=== PATIENT | female | born 1980 | race Caucasian/White ===

== ENCOUNTER 2017-12-24 14:38 | Inpatient (IN) | payer MEDICAID ==
[~2017-12-24] VITALS: Ht 154.9 cm; Wt 70.0 kg
[2017-12-24] MEDS ORDERED: LAMO25 PO (14:44)
[2017-12-24] MEDS ORDERED: DiphenhydrAMINE HCL 25 MG CAPSULE PO ONE (16:15)
[2017-12-24] MEDS ORDERED: HALOPERIDOL 5 MG TABLET PO ONE (16:15)
[2017-12-24] MEDS ORDERED: LORazepam 2 MG TABLET PO ONE (16:15)
[2017-12-24 17:14] LABS: BASOPHILS % (AUTO) 0.8 % (0.0-2.0); EOSINOPHILS % (AUTO) 2.1 % (1.0-6.0); HEMATOCRIT 39.9 % (36-46); HEMOGLOBIN 13.7 g/dL (12.0-16.0); LYMPHOCYTES % (AUTO) 18.2 % (22.0-44.0); MEAN CORPUSCULAR HEMOGLOBIN 31.4 pg (26.0-34.0); MEAN CORPUSCULAR HGB CONC 34.5 G/dL (31.0-37.0); MEAN CORPUSCULAR VOLUME 91 fL (80-100); MONOCYTES # (AUTO) 0.9 K/uL (0.1-1.0); NEUTROPHILS # (AUTO) 7.7 K/uL (1.8-7.7); NEUTROPHILS % (AUTO) 70.9 % (40.0-70.0); PLATELET COUNT (AUTO) 291 K/uL (150-450); RED BLOOD CELL COUNT(AUTO) 4.38 MIL/uL (4.00-5.20); RED CELL DISTRIBUTION WIDTH 13.3 % (11.5-14.5)
[2017-12-24 17:33] LABS: ALANINE AMINOTRANSFERASE 44 U/L (12-78); ALKALINE PHOSPHATASE 54 U/L (46-116); ANION GAP 10 mmol/L (8-16); ASPARTATE AMINOTRANSFERASE 80 U/L (15-37); BILIRUBIN,TOTAL 0.6 mg/dL (0.1-1.0); CARBON DIOXIDE 26 mmol/L (22-29); CHLORIDE 101 mmol/L (98-107); CREATININE 0.75 mg/dL (0.60-1.30); GLOMERULAR FILTR. RATE CALC > 60 mL/min (>60); GLUCOSE,RANDOM 98 mg/dL (70-110); SODIUM SERUM 137 mmol/L (136-145); TOTAL PROTEIN, SERUM 7.8 g/dL (6.4-8.2); UREA NITROGEN, BLOOD 7 mg/dL (7-18)
[2017-12-24 17:45] LABS: POTASSIUM 2.8 mmol/L (3.5-5.1)
[2017-12-24] MEDS ORDERED: POTASSIUM CHLORIDE 20 MEQ ER TABLET PO ONE ×2 (18:15→21:30)
[2017-12-24] MEDS ORDERED: OLANZapine 5 MG RAPDIS TABLET PO PRN (18:45)
[2017-12-24] MEDS ORDERED: IBUPROFEN 400 MG TABLET PO PRN ×2 (18:45→21:15)
[2017-12-24] MEDS ORDERED: ACETAMINOPHEN 325 MG TABLET PO PRN ×2 (18:45→21:15)
[2017-12-24 18:57] LABS: APPEARANCE,URINE CLEAR (CLEAR); BILIRUBIN,URINE NEGATIVE (NEGATIVE); GLUCOSE, URINE (UA) NEGATIVE (NEGATIVE); KETONES,URINE NEGATIVE (NEGATIVE); LEUKOCYTE ESTERASE ,URINE NEGATIVE (NEGATIVE); NITRATE,URINE NEGATIVE (NEGATIVE); OCCULT BLOOD,URINE NEGATIVE (NEGATIVE); PROTEIN,URINE NEGATIVE (NEGATIVE); UROBILINOGEN,URINE 0.2 mg/dL (<=1.0)
[2017-12-24 18:59] LABS: AMPHET/METH SCREEN,URINE NEGATIVE (NEGATIVE); BARBITURATE SCREEN, URINE NEGATIVE (NEGATIVE); BENZODIAZEPINES SCREEN,URINE NEGATIVE (NEGATIVE); CANNABINOID SCREEN,URINE NEGATIVE (NEGATIVE); COCAINE SCREEN,URINE NEGATIVE (NEGATIVE); METHADONE SCREEN, URINE NEGATIVE (NEGATIVE); OPIATE SCREEN,URINE NEGATIVE (NEGATIVE); PHENCYCLIDINE SCREEN,URINE NEGATIVE (NEGATIVE)
[2017-12-24 20:46] VITALS: BP 112/64
[2017-12-24] MEDS ORDERED: LOPERAMIDE HCL 2 MG CAPSULE PO PRN (21:15)
[2017-12-24] MEDS ORDERED: ALBUTEROL SULFATE HFA 90 MCG/PUFF 8 GM INHALER IH PRN (21:15)
[2017-12-24] MEDS ORDERED: MAGNESIUM HYDROXIDE SUSPENSION 30 ML UDCUP PO PRN (21:15)
[2017-12-24] MEDS ORDERED: ONDANSETRON HCL 4 MG TABLET PO PRN (21:15)
[2017-12-24] MEDS ORDERED: DOCUSATE SODIUM 100 MG CAPSULE PO PRN (21:15)
[2017-12-24] MEDS ORDERED: PETROLATUM,WHITE 71 GM JELLY TP PRN (21:15)
[2017-12-24] MEDS ORDERED: CloNIDine HCL 0.1 MG TABLET PO PRN (21:15)
[2017-12-24] MEDS ORDERED: MAG HYDROX/AL HYDROX/SIMETH ES 30 ML SUSPENSION UDCUP PO PRN (21:15)
[2017-12-25 01:30] VITALS: BP 123/86
[2017-12-25 08:15] VITALS: BP 104/72
[2017-12-25 08:56] LABS: BASOPHILS % (AUTO) 0.8 % (0.0-2.0); EOSINOPHILS % (AUTO) 4.2 % (1.0-6.0); HEMATOCRIT 41.2 % (36-46); HEMOGLOBIN 14.1 g/dL (12.0-16.0); LYMPHOCYTES # (AUTO) 1.2 K/uL (1.0-4.8); LYMPHOCYTES % (AUTO) 19.9 % (22.0-44.0); MEAN CORPUSCULAR HEMOGLOBIN 31.2 pg (26.0-34.0); MEAN CORPUSCULAR HGB CONC 34.2 G/dL (31.0-37.0); MEAN CORPUSCULAR VOLUME 91 fL (80-100); MONOCYTES # (AUTO) 0.3 K/uL (0.1-1.0); MONOCYTES % (AUTO) 5.9 % (2.0-9.0); NEUTROPHILS % (AUTO) 69.2 % (40.0-70.0); PLATELET COUNT (AUTO) 297 K/uL (150-450); RED BLOOD CELL COUNT(AUTO) 4.52 MIL/uL (4.00-5.20); RED CELL DISTRIBUTION WIDTH 13.3 % (11.5-14.5)
[2017-12-25] MEDS: LORazepam 2 MG TABLET PO PRN (09:06)
[2017-12-25 09:28] LABS: HEMOGLOBIN A1C 5.3 % (4.5-6.2)
[2017-12-25 09:31] LABS: ALANINE AMINOTRANSFERASE 45 U/L (12-78); ALBUMIN 3.7 g/dL (3.4-5.0); ALKALINE PHOSPHATASE 49 U/L (46-116); ANION GAP 6 mmol/L (8-16); ASPARTATE AMINOTRANSFERASE 74 U/L (15-37); BILIRUBIN,TOTAL 0.6 mg/dL (0.1-1.0); CALCIUM, TOTAL 9.1 mg/dL (8.8-10.5); CARBON DIOXIDE 29 mmol/L (22-29); CHLORIDE 103 mmol/L (98-107); CHOL/HDL RATIO 2.3 (3.9-5.7); CHOLESTEROL 145 mg/dL (131-200); CREATININE 0.68 mg/dL (0.60-1.30); GLOMERULAR FILTR. RATE CALC > 60 mL/min (>60); GLUCOSE,RANDOM 131 mg/dL (70-110); HDL CHOLESTEROL 64 mg/dL (40-60); LDL CHOL (CALC.) 72 mg/dL (0-130); POTASSIUM 3.3 mmol/L (3.5-5.1); SODIUM SERUM 138 mmol/L (136-145); THYROID STIMULATING HORMONE 2.74 uIU/mL (0.36-3.74); TOTAL PROTEIN, SERUM 7.5 g/dL (6.4-8.2); TRIGLYCERIDES 43 mg/dL (15-150); UREA NITROGEN, BLOOD 8 mg/dL (7-18)
[2017-12-25] MEDS ORDERED: POTASSIUM CHLORIDE 20 MEQ ER TABLET PO ONE (10:00)
[2017-12-25] MEDS ORDERED: LORATADINE 10 MG TABLET PO PRN (10:30)
[2017-12-25 16:13] VITALS: BP 109/70
[2017-12-25] MEDS: LamoTRIgine 25 MG TABLET PO SCH (16:33)
[2017-12-26 07:03] VITALS: BP 125/77
[2017-12-26] MEDS: LORazepam 2 MG TABLET PO PRN ×2 (08:09→17:15)
[2017-12-26] MEDS: LamoTRIgine 25 MG TABLET PO SCH ×2 (08:09→16:01)
[2017-12-26 13:26] VITALS: BP 123/74
[2017-12-26 16:12] VITALS: BP 113/72
[2017-12-27 00:38] VITALS: BP 110/89
[2017-12-27] MEDS: LamoTRIgine 25 MG TABLET PO SCH ×2 (08:36→17:12)
[2017-12-27 08:40] LABS: ALANINE AMINOTRANSFERASE 63 U/L (12-78); ALBUMIN 3.7 g/dL (3.4-5.0); ALKALINE PHOSPHATASE 56 U/L (46-116); ANION GAP 7 mmol/L (8-16); ASPARTATE AMINOTRANSFERASE 93 U/L (15-37); BILIRUBIN,TOTAL 0.3 mg/dL (0.1-1.0); CALCIUM, TOTAL 9.1 mg/dL (8.8-10.5); CARBON DIOXIDE 29 mmol/L (22-29); CHLORIDE 103 mmol/L (98-107); CREATININE 0.64 mg/dL (0.60-1.30); GLOMERULAR FILTR. RATE CALC > 60 mL/min (>60); GLUCOSE,RANDOM 94 mg/dL (70-110); POTASSIUM 3.9 mmol/L (3.5-5.1); SODIUM SERUM 139 mmol/L (136-145); TOTAL PROTEIN, SERUM 7.5 g/dL (6.4-8.2); UREA NITROGEN, BLOOD 8 mg/dL (7-18)
[2017-12-27 08:52] VITALS: BP 112/62
[2017-12-27] MEDS: LORazepam 2 MG TABLET PO PRN (09:47)
[2017-12-27 16:15] VITALS: BP 114/85
[2017-12-27] MEDS: ZOLPIDEM TARTRATE 10 MG TABLET PO PRN (22:30)
[2017-12-28 00:10] VITALS: BP 123/71
[2017-12-28] MEDS: LamoTRIgine 25 MG TABLET PO SCH ×2 (08:20→16:07)
[2017-12-28 08:39] VITALS: BP 124/79
[2017-12-28 16:19] VITALS: BP 109/75
[2017-12-29 01:15] VITALS: BP 132/92
[2017-12-29 08:30] VITALS: BP 124/76
[2017-12-29] MEDS: LamoTRIgine 25 MG TABLET PO SCH ×2 (08:43→16:55)
[2017-12-29] MEDS: OLANZapine 5 MG RAPDIS TABLET PO SCH ×2 (10:15→16:55)
[2017-12-29 16:10] VITALS: BP 128/88
[2017-12-30 00:38] VITALS: BP 126/95
[2017-12-30] MEDS: LamoTRIgine 25 MG TABLET PO SCH ×2 (08:43→16:35)
[2017-12-30] MEDS: OLANZapine 5 MG RAPDIS TABLET PO SCH ×2 (08:43→16:35)
[2017-12-30 08:58] VITALS: BP 140/93
[2017-12-30 16:29] VITALS: BP 134/83
[2017-12-30] MEDS: ZOLPIDEM TARTRATE 10 MG TABLET PO PRN (23:46)
[2017-12-31 06:41] VITALS: BP 120/69
[2017-12-31 08:27] VITALS: BP 103/75
[2017-12-31] MEDS: OLANZapine 5 MG RAPDIS TABLET PO SCH (08:38)
[2017-12-31] MEDS: LamoTRIgine 25 MG TABLET PO SCH ×2 (08:38→17:25)
[2017-12-31] MEDS: LORazepam 2 MG TABLET PO PRN ×2 (09:34→17:25)
[2017-12-31 16:31] VITALS: BP 116/66
[2017-12-31] MEDS ORDERED: OLANZapine 10 MG RAPDIS TABLET PO SCH (21:00)
[2017-12-31] MEDS: ZOLPIDEM TARTRATE 10 MG TABLET PO PRN (21:26)
[2018-01-01 00:41] VITALS: BP 118/78
[2018-01-01] MEDS: LamoTRIgine 25 MG TABLET PO SCH (08:12)
[2018-01-01 08:16] VITALS: BP 118/74
[2018-01-01] MEDS ORDERED: OLAN10TA3 PO (09:54)
[2018-01-01] MEDS ORDERED: LAMO25 PO (09:54)
== END 2018-01-01 12:26 | disposition home or self-care (01) | DRG 750 ==
LOC: EMS 14:39 → B3A 19:00
PROVIDERS: ADMIT Psychiatry & Neurology Psychiatry; ATTEND Psychiatry & Neurology Psychiatry
DX: F25.9 Schizoaffective disorder, unspecified (principal); R74.0 Nonspecific elevation of levels of transaminase and lactic acid dehydrogenase [LDH]; F15.10 Other stimulant abuse, uncomplicated; E87.6 Hypokalemia; F10.10 Alcohol abuse, uncomplicated; F31.9 Bipolar disorder, unspecified; F41.9 Anxiety disorder, unspecified; J30.9 Allergic rhinitis, unspecified; Z79.899 Other long term (current) drug therapy; Z91.14 Patient's other noncompliance with medication regimen
CPT/HCPCS: 80074; 83036; 84443; 99285; G0480

== ENCOUNTER 2018-02-12 16:10 | Emergency (ER) | payer MEDICAID ==
[~2018-02-12] VITALS: Ht 156.2 cm; Wt 73.6 kg
[~2018-02-12 16:10] MED LIST: LAMO25 PO; OLAN10TA3 PO
[2018-02-12 21:30] LABS: BASOPHILS % (AUTO) 0.4 % (0.0-2.0); LYMPHOCYTES # (AUTO) 2.7 K/uL (1.0-4.8); MEAN CORPUSCULAR HEMOGLOBIN 31.1 pg (26.0-34.0); MEAN CORPUSCULAR HGB CONC 34.1 G/dL (31.0-37.0); MEAN CORPUSCULAR VOLUME 91 fL (80-100); MONOCYTES # (AUTO) 1.1 K/uL (0.1-1.0); MONOCYTES % (AUTO) 8.7 % (2.0-9.0); NEUTROPHILS # (AUTO) 8.7 K/uL (1.8-7.7); NEUTROPHILS % (AUTO) 68.9 % (40.0-70.0); PLATELET COUNT (AUTO) 347 K/uL (150-450); RED CELL DISTRIBUTION WIDTH 13.8 % (11.5-14.5)
[2018-02-12 21:46] LABS: ALANINE AMINOTRANSFERASE 25 U/L (12-78); ALBUMIN 3.6 g/dL (3.4-5.0); ALKALINE PHOSPHATASE 72 U/L (46-116); ANION GAP 8 mmol/L (8-16); ASPARTATE AMINOTRANSFERASE 30 U/L (15-37); BILIRUBIN,TOTAL 0.4 mg/dL (0.1-1.0); CALCIUM, TOTAL 8.9 mg/dL (8.8-10.5); CARBON DIOXIDE 27 mmol/L (22-29); CHLORIDE 102 mmol/L (98-107); CREATININE 0.81 mg/dL (0.60-1.30); GLOMERULAR FILTR. RATE CALC > 60 mL/min (>60); GLUCOSE,RANDOM 99 mg/dL (70-110); SODIUM SERUM 137 mmol/L (136-145); TOTAL PROTEIN, SERUM 7.6 g/dL (6.4-8.2); UREA NITROGEN, BLOOD 9 mg/dL (7-18)
[2018-02-12] MEDS ORDERED: LORazepam 2 MG TABLET PO ONE (22:45)
[2018-02-12] MEDS ORDERED: OLANZapine 5 MG TABLET PO ONE (22:45)
[2018-02-12] MEDS ORDERED: POTASSIUM CHLORIDE 20 MEQ ER TABLET PO ONE (23:00)
[2018-02-12 23:03] VITALS: BP 110/66
== END 2018-02-12 23:06 | disposition home or self-care (01) ==
LOC: EMS 16:11
DX: F31.9 Bipolar disorder, unspecified (principal); F20.9 Schizophrenia, unspecified; Z76.0 Encounter for issue of repeat prescription
CPT/HCPCS: 36415; 80053; 85025; 99284; G0480

== ENCOUNTER 2018-03-07 10:16 | Emergency (ER) | payer MEDICAID ==
[~2018-03-07] VITALS: Ht 154.9 cm; Wt 73.6 kg
[~2018-03-07 10:16] MED LIST changes: +DIVA250T4 PO; -LAMO25 PO; -OLAN10TA3 PO; +OLAN5TAB2 PO
[2018-03-07 11:47] LABS: BASOPHILS % (AUTO) 0.5 % (0.0-2.0); EOSINOPHILS % (AUTO) 4.8 % (1.0-6.0); HEMATOCRIT 38.3 % (36-46); HEMOGLOBIN 13.3 g/dL (12.0-16.0); LYMPHOCYTES # (AUTO) 1.6 K/uL (1.0-4.8); LYMPHOCYTES % (AUTO) 17.9 % (22.0-44.0); MEAN CORPUSCULAR HEMOGLOBIN 31.1 pg (26.0-34.0); MEAN CORPUSCULAR HGB CONC 34.6 G/dL (31.0-37.0); MEAN CORPUSCULAR VOLUME 90 fL (80-100); MONOCYTES # (AUTO) 0.6 K/uL (0.1-1.0); MONOCYTES % (AUTO) 6.5 % (2.0-9.0); NEUTROPHILS # (AUTO) 6.2 K/uL (1.8-7.7); NEUTROPHILS % (AUTO) 70.3 % (40.0-70.0); PLATELET COUNT (AUTO) 379 K/uL (150-450); RED BLOOD CELL COUNT(AUTO) 4.26 MIL/uL (4.00-5.20); RED CELL DISTRIBUTION WIDTH 13.1 % (11.5-14.5)
[2018-03-07 11:48] LABS: ANION GAP 8 mmol/L (8-16); CALCIUM, TOTAL 9.1 mg/dL (8.8-10.5); CARBON DIOXIDE 27 mmol/L (22-29); CHLORIDE 102 mmol/L (98-107); CREATININE 0.72 mg/dL (0.60-1.30); GLOMERULAR FILTR. RATE CALC > 60 mL/min (>60); GLUCOSE,RANDOM 108 mg/dL (70-110); POTASSIUM 3.9 mmol/L (3.5-5.1); SODIUM SERUM 137 mmol/L (136-145); UREA NITROGEN, BLOOD 12 mg/dL (7-18)
[2018-03-07 12:02] LABS: ALANINE AMINOTRANSFERASE 23 U/L (12-78); ALKALINE PHOSPHATASE 84 U/L (46-116); ASPARTATE AMINOTRANSFERASE 25 U/L (15-37); BILIRUBIN,TOTAL 0.3 mg/dL (0.1-1.0); TOTAL PROTEIN, SERUM 7.6 g/dL (6.4-8.2)
[2018-03-07] MEDS ORDERED: LORazepam 1 MG TABLET PO ONE (13:00)
[2018-03-07 13:03] LABS: AMPHET/METH SCREEN,URINE NEGATIVE (NEGATIVE); BARBITURATE SCREEN, URINE NEGATIVE (NEGATIVE); BENZODIAZEPINES SCREEN,URINE NEGATIVE (NEGATIVE); CANNABINOID SCREEN,URINE NEGATIVE (NEGATIVE); COCAINE SCREEN,URINE NEGATIVE (NEGATIVE); METHADONE SCREEN, URINE NEGATIVE (NEGATIVE); OPIATE SCREEN,URINE NEGATIVE (NEGATIVE); PHENCYCLIDINE SCREEN,URINE NEGATIVE (NEGATIVE)
[2018-03-07 13:47] VITALS: BP 116/77
== END 2018-03-07 13:53 | disposition home or self-care (01) ==
LOC: EMS 10:17
DX: F31.9 Bipolar disorder, unspecified (principal); F20.9 Schizophrenia, unspecified; Z79.899 Other long term (current) drug therapy
CPT/HCPCS: 36415; 80053; 80307; 85025; 99284; G0480

== ENCOUNTER 2023-02-14 12:51 | Inpatient (IN) | payer MEDICAID, OTHER ==
[~2023-02-14] VITALS: Ht 154.9 cm; Wt 103.4 kg
[~2023-02-14 12:51] MED LIST changes: -OLAN5TAB2 PO; +OLAN5TAB52 PO
[2023-02-14] MEDS ORDERED: DIVA-112 PO (12:57)
[2023-02-14] MEDS ORDERED: METF-1211 PO (12:57)
[2023-02-14] MEDS ORDERED: OLAN5TAB30 PO (12:57)
[2023-02-14 13:26] LABS: BASOPHILS % (AUTO) 0.6 % (0.0-2.0); EOSINOPHILS % (AUTO) 0.3 % (1.0-6.0); HEMOGLOBIN 11.7 g/dL (12.0-16.0); LYMPHOCYTES # (AUTO) 1.9 K/uL (1.0-4.8); LYMPHOCYTES % (AUTO) 22.2 % (22.0-44.0); MEAN CORPUSCULAR HEMOGLOBIN 31.2 pg (26.0-34.0); MEAN CORPUSCULAR HGB CONC 33.5 G/dL (31.0-37.0); MEAN CORPUSCULAR VOLUME 93 fL (80-100); MONOCYTES # (AUTO) 0.5 K/uL (0.1-1.0); MONOCYTES % (AUTO) 5.6 % (2.0-9.0); NEUTROPHILS # (AUTO) 6.2 K/uL (1.8-7.7); NEUTROPHILS % (AUTO) 71.3 % (40.0-70.0); PLATELET COUNT (AUTO) 344 K/uL (150-450); RED BLOOD CELL COUNT(AUTO) 3.76 MIL/uL (4.00-5.20); RED CELL DISTRIBUTION WIDTH 14.1 % (11.5-14.5); WHITE BLOOD COUNT (AUTO) 8.7 K/uL (4.5-11.0)
[2023-02-14 13:38] LABS: ANION GAP 18 mmol/L (8-16); CALCIUM, TOTAL 8.5 mg/dL (8.8-10.5); CARBON DIOXIDE 20 mmol/L (22-29); CHLORIDE 103 mmol/L (98-107); CREATININE 0.65 mg/dL (0.60-1.30); GLOMERULAR FILTR. RATE CALC > 60 mL/min (>60); GLUCOSE,RANDOM 72 mg/dL (70-110); SODIUM SERUM 141 mmol/L (136-145); UREA NITROGEN, BLOOD 13 mg/dL (7-18)
[2023-02-14 13:44] LABS: ALCOHOL, BLOOD (SERUM) < 3 mg/dL (0-10)
[2023-02-14 13:50] LABS: ALANINE AMINOTRANSFERASE 57 U/L (12-78); ALBUMIN 3.1 g/dL (3.4-5.0); ALKALINE PHOSPHATASE 50 U/L (46-116); ASPARTATE AMINOTRANSFERASE 67 U/L (15-37); BILIRUBIN,TOTAL 0.6 mg/dL (0.1-1.0); TOTAL PROTEIN, SERUM 6.8 g/dL (6.4-8.2)
[2023-02-14 14:02] LABS: COVID AG,FIA SOURCE NASAL SWAB
[2023-02-14 14:20] LABS: SARS-COV2 (COVID) ANTIGEN,FIA Negative (Negative)
[2023-02-14] MEDS ORDERED: DiphenhydrAMINE HCL 25 MG CAPSULE PO ONE (15:00)
[2023-02-14] MEDS ORDERED: LORazepam 2 MG TABLET PO ONE (15:00)
[2023-02-14] MEDS ORDERED: HALOPERIDOL 5 MG TABLET PO ONE (15:00)
[2023-02-14] MEDS ORDERED: POTASSIUM CHLORIDE 10% 40 MEQ/30 ML LIQUID UDCUP PO ONE (15:00)
[2023-02-14 15:24] LABS: VALPROIC ACID < 3 mcg/mL (50-100)
[2023-02-14] MEDS ORDERED: LORazepam 2 MG TABLET PO PRN (16:00)
[2023-02-14] MEDS ORDERED: QUEtiapine FUMARATE 100 MG TABLET PO PRN (16:00)
[2023-02-15 02:29] VITALS: BP 131/76; PULSE 66; RESP 18; TEMP 98; O2SAT 97
[2023-02-15] MEDS ORDERED: PNEUMOCOCCAL VACCINE POLYVALENT 0.5 ML SYRINGE [PPSV23] IM. ONE (03:45)
[2023-02-15] MEDS ORDERED: CloNIDine HCL 0.1 MG TABLET PO PRN (07:30)
[2023-02-15] MEDS ORDERED: ACETAMINOPHEN 325 MG TABLET PO PRN (07:30)
[2023-02-15] MEDS ORDERED: PETROLATUM,WHITE 28 GM JELLY TP PRN (07:30)
[2023-02-15] MEDS ORDERED: MAG HYDROX/AL HYDROX/SIMETH ES 30 ML SUSPENSION UDCUP PO PRN (07:30)
[2023-02-15] MEDS ORDERED: DOCUSATE SODIUM 100 MG CAPSULE PO PRN (07:30)
[2023-02-15] MEDS ORDERED: GuaiFENesin/D-METHORPHAN [SUGAR-FREE] 200-20MG/10 ML SYRUP UDCUP PO PRN (07:30)
[2023-02-15] MEDS ORDERED: NICOTINE 14 MG/24 HOUR PATCH TD PRN (07:30)
[2023-02-15] MEDS ORDERED: ALBUTEROL SULFATE HFA 90 MCG/PUFF 8 GM INHALER IH PRN (07:30)
[2023-02-15] MEDS ORDERED: IBUPROFEN 400 MG TABLET PO PRN (07:30)
[2023-02-15] MEDS ORDERED: LOPERAMIDE HCL 2 MG CAPSULE PO PRN (07:30)
[2023-02-15] MEDS ORDERED: ONDANSETRON HCL 4 MG TABLET PO PRN (07:30)
[2023-02-15] MEDS ORDERED: MAGNESIUM HYDROXIDE SUSPENSION 30 ML UDCUP PO PRN (07:30)
[2023-02-15 08:22] VITALS: BP 126/85; PULSE 88; RESP 16; TEMP 98; O2SAT 97
[2023-02-15] MEDS: DIVALPROEX SODIUM 500 MG DR TABLET PO SCH ×2 (10:51→20:26)
[2023-02-15] MEDS: MetFORMIN HCL 500 MG TABLET PO SCH ×2 (10:52→16:33)
[2023-02-15] MEDS: OLANZapine 5 MG RAPDIS TABLET PO SCH (20:27)
[2023-02-15 20:38] VITALS: BP 117/67; PULSE 99; RESP 18; TEMP 97.6; O2SAT 100
[2023-02-16 07:38] LABS: HEMOGLOBIN A1C 5.5 % (3.8-5.6)
[2023-02-16 07:54] LABS: CHOL/HDL RATIO 3.7 (3.9-5.7); POTASSIUM 3.2 mmol/L (3.5-5.1); THYROID STIMULATING HORMONE 3.57 uIU/mL (0.36-3.74)
[2023-02-16 08:10] VITALS: BP 117/80; PULSE 100; RESP 18; TEMP 98.2; O2SAT 96
[2023-02-16] MEDS ORDERED: POTASSIUM CHLORIDE 20 MEQ ER TABLET PO ONE (08:15)
[2023-02-16] MEDS: MetFORMIN HCL 500 MG TABLET PO SCH ×2 (08:37→16:50)
[2023-02-16] MEDS: DIVALPROEX SODIUM 500 MG DR TABLET PO SCH ×2 (08:37→21:03)
[2023-02-16] MEDS: OLANZapine 5 MG RAPDIS TABLET PO SCH (21:03)
[2023-02-17 01:56] VITALS: RESP 17
[2023-02-17 08:34] VITALS: BP 119/80; PULSE 76; RESP 16; TEMP 98; O2SAT 99
[2023-02-17] MEDS: MetFORMIN HCL 500 MG TABLET PO SCH ×2 (09:05→17:45)
[2023-02-17] MEDS: DIVALPROEX SODIUM 500 MG DR TABLET PO SCH ×2 (09:05→21:55)
[2023-02-17 20:33] VITALS: BP 124/83; PULSE 86; RESP 18; TEMP 97.6; O2SAT 100
[2023-02-17] MEDS: ZOLPIDEM TARTRATE 10 MG TABLET PO PRN (21:55)
[2023-02-17] MEDS: OLANZapine 5 MG RAPDIS TABLET PO SCH (21:55)
[2023-02-18] MEDS ORDERED: POTASSIUM CHLORIDE 20 MEQ ER TABLET PO ONE (08:00)
[2023-02-18 08:07] VITALS: BP 141/82; PULSE 95; RESP 19; TEMP 97.8; O2SAT 98
[2023-02-18] MEDS: MetFORMIN HCL 500 MG TABLET PO SCH ×2 (08:58→16:13)
[2023-02-18] MEDS: DIVALPROEX SODIUM 500 MG DR TABLET PO SCH ×2 (08:58→20:15)
[2023-02-18] MEDS: ZOLPIDEM TARTRATE 10 MG TABLET PO PRN (20:15)
[2023-02-18] MEDS: OLANZapine 5 MG RAPDIS TABLET PO SCH (20:15)
[2023-02-18 20:29] VITALS: RESP 17
[2023-02-19] MEDS: DIVALPROEX SODIUM 500 MG DR TABLET PO SCH ×2 (08:17→20:27)
[2023-02-19] MEDS: MetFORMIN HCL 500 MG TABLET PO SCH ×2 (08:17→16:39)
[2023-02-19 08:21] VITALS: BP 148/73; PULSE 100; RESP 18; TEMP 98.2; O2SAT 98
[2023-02-19 20:03] VITALS: BP 133/81; PULSE 88; RESP 18; TEMP 98.1; O2SAT 97
[2023-02-19] MEDS: ZOLPIDEM TARTRATE 10 MG TABLET PO PRN (20:27)
[2023-02-19] MEDS: OLANZapine 5 MG RAPDIS TABLET PO SCH (20:27)
[2023-02-20] MEDS ORDERED: POTASSIUM CHLORIDE 20 MEQ ER TABLET PO ONE (08:00)
[2023-02-20] MEDS: DIVALPROEX SODIUM 500 MG DR TABLET PO SCH (08:19)
[2023-02-20] MEDS: MetFORMIN HCL 500 MG TABLET PO SCH (08:19)
[2023-02-20 09:45] VITALS: BP 114/56; PULSE 80; RESP 18; TEMP 97.4; O2SAT 96
[2023-02-20] MEDS ORDERED: DIVA-112 PO ×2 (10:12→11:46)
[2023-02-20] MEDS ORDERED: OLAN5TAB94 PO ×2 (10:13→11:46)
[2023-02-20] MEDS ORDERED: METF-1211 PO (11:46)
== END 2023-02-20 12:00 | disposition left against medical advice (07) | DRG 750 ==
LOC: EMS 12:52 → B3A 02-15 01:16 → UNDOADMIN 02-15 02:08 → B3A 02-15 02:08
PROVIDERS: ADMIT Psychiatry & Neurology Psychiatry; ATTEND Psychiatry & Neurology Psychiatry
DX: F25.0 Schizoaffective disorder, bipolar type (principal); R45.851 Suicidal ideations; E11.9 Type 2 diabetes mellitus without complications; D64.9 Anemia, unspecified; E87.6 Hypokalemia; E78.5 Hyperlipidemia, unspecified; Z53.21 Procedure and treatment not carried out due to patient leaving prior to being seen by health care provider; Z20.822 Contact with and (suspected) exposure to COVID-19; Z79.899 Other long term (current) drug therapy; Z79.84 Long term (current) use of oral hypoglycemic drugs
CPT/HCPCS: 80053; 80061; 80164; 83036; 83735; 84132; 84443; 84703; 85025; 99285; G0480

== ENCOUNTER 2023-04-16 00:29 | Inpatient (IN) | payer MEDICAID ==
[~2023-04-16] VITALS: Ht 157.5 cm; Wt 91.0 kg
[~2023-04-16 00:29] MED LIST changes: +DIVA-112 PO; -DIVA250T4 PO; +METF-1211 PO; -OLAN5TAB52 PO; +OLAN5TAB94 PO
[2023-04-16] MEDS ORDERED: HALOPERIDOL 5 MG TABLET PO PRN (01:00)
[2023-04-16 01:21] LABS: GLUCOMETER DEV NAME(LOC) POC.BV; POC SARS-COV2 AG, FIA NEGATIVE (NEGATIVE)
[2023-04-16 05:55] VITALS: BP 132/84; PULSE 78; RESP 18; TEMP 97.3; O2SAT 97
[2023-04-16] MEDS ORDERED: INFLUENZA VIRUS VACCINE QVS 2023-24 (6MO+)/PF 60 MCG/0.5 ML SYRINGE IM. ONE (06:00)
[2023-04-16 08:18] VITALS: BP 100/63; PULSE 84; RESP 17; TEMP 98.3; O2SAT 97
[2023-04-16 08:23] LABS: BASOPHILS % (AUTO) 0.3 % (0.0-2.0); EOSINOPHILS % (AUTO) 0.5 % (1.0-6.0); HEMOGLOBIN 12.1 g/dL (12.0-16.0); LYMPHOCYTES # (AUTO) 2.4 K/uL (1.0-4.8); LYMPHOCYTES % (AUTO) 27.7 % (22.0-44.0); MEAN CORPUSCULAR HEMOGLOBIN 31.5 pg (26.0-34.0); MEAN CORPUSCULAR HGB CONC 34.5 G/dL (31.0-37.0); MEAN CORPUSCULAR VOLUME 91 fL (80-100); MONOCYTES # (AUTO) 0.8 K/uL (0.1-1.0); MONOCYTES % (AUTO) 9.1 % (2.0-9.0); NEUTROPHILS # (AUTO) 5.4 K/uL (1.8-7.7); NEUTROPHILS % (AUTO) 62.4 % (40.0-70.0); PLATELET COUNT (AUTO) 311 K/uL (150-450); RED BLOOD CELL COUNT(AUTO) 3.83 MIL/uL (4.00-5.20); RED CELL DISTRIBUTION WIDTH 14.2 % (11.5-14.5); WHITE BLOOD COUNT (AUTO) 8.7 K/uL (4.5-11.0)
[2023-04-16 08:38] LABS: HEMOGLOBIN A1C 5.5 % (3.8-5.6)
[2023-04-16] MEDS: LORazepam 2 MG TABLET PO PRN (08:42)
[2023-04-16 09:21] LABS: ALANINE AMINOTRANSFERASE 19 U/L (12-78); ALBUMIN 2.5 g/dL (3.4-5.0); ALKALINE PHOSPHATASE 54 U/L (46-116); ANION GAP 4 mmol/L (8-16); ASPARTATE AMINOTRANSFERASE 12 U/L (15-37); BILIRUBIN,TOTAL 0.1 mg/dL (0.1-1.0); CALCIUM, TOTAL 8.7 mg/dL (8.8-10.5); CARBON DIOXIDE 29 mmol/L (22-29); CHLORIDE 109 mmol/L (98-107); CHOL/HDL RATIO 3.1 (3.9-5.7); CHOLESTEROL 134 mg/dL (131-200); CREATININE 0.68 mg/dL (0.60-1.30); GLOMERULAR FILTR. RATE CALC > 60 mL/min (>60); GLUCOSE,RANDOM 109 mg/dL (70-110); HDL CHOLESTEROL 43 mg/dL (40-60); LDL CHOL (CALC.) 75 mg/dL (0-130); POTASSIUM 3.9 mmol/L (3.5-5.1); SODIUM SERUM 142 mmol/L (136-145); THYROID STIMULATING HORMONE 3.92 uIU/mL (0.36-3.74); TOTAL PROTEIN, SERUM 6.1 g/dL (6.4-8.2); TRIGLYCERIDES 78 mg/dL (15-150); UREA NITROGEN, BLOOD 12 mg/dL (7-18)
[2023-04-16 13:55] LABS: APPEARANCE,URINE CLEAR (CLEAR); BILIRUBIN,URINE NEGATIVE (NEGATIVE); COLOR,URINE YELLOW (YELLOW); GLUCOSE, URINE (UA) NEGATIVE (NEGATIVE); KETONES,URINE TRACE mg/dL (NEGATIVE); LEUKOCYTE ESTERASE ,URINE NEGATIVE (NEGATIVE); NITRATE,URINE NEGATIVE (NEGATIVE); OCCULT BLOOD,URINE NEGATIVE (NEGATIVE); PH,URINE 6.5 (5.0-8.0); PH,URINE DRUG SCREEN 6.5 (5.0-8.0); PROTEIN,URINE TRACE mg/dL (NEGATIVE); SPECIFIC GRAVITIY, URINE 1.027 (1.003-1.030); UROBILINOGEN,URINE <=1.0 mg/dL (<=1.0)
[2023-04-16 14:04] LABS: ALCOHOL, URINE DRUG SCREEN NEGATIVE (NEGATIVE); AMPHET/METH SCREEN,URINE NEGATIVE (NEGATIVE); BARBITURATE SCREEN, URINE NEGATIVE (NEGATIVE); BENZODIAZEPINES SCREEN,URINE NEGATIVE (NEGATIVE); CANNABINOID SCREEN,URINE NEGATIVE (NEGATIVE); COCAINE SCREEN,URINE NEGATIVE (NEGATIVE); METHADONE SCREEN, URINE NEGATIVE (NEGATIVE); OPIATE SCREEN,URINE NEGATIVE (NEGATIVE); PHENCYCLIDINE SCREEN,URINE NEGATIVE (NEGATIVE)
[2023-04-16] MEDS ORDERED: IBUPROFEN 600 MG TABLET PO PRN (19:15)
[2023-04-16] MEDS ORDERED: BACITRACIN 28 GM OINTMENT TP PRN (19:15)
[2023-04-16] MEDS ORDERED: ACETAMINOPHEN 325 MG TABLET PO PRN (19:15)
[2023-04-16] MEDS ORDERED: MAG HYDROX/ALUMINUM HYD/SIMETH ES 30 ML SUSPENSION UDCUP PO PRN (19:15)
[2023-04-16] MEDS ORDERED: CloNIDine HCL 0.1 MG TABLET PO PRN (19:15)
[2023-04-16] MEDS ORDERED: ONDANSETRON HCL 4 MG TABLET PO PRN (19:15)
[2023-04-16] MEDS ORDERED: BENZOCAINE/MENTHOL LOZENGE PO PRN (19:15)
[2023-04-16] MEDS ORDERED: OMEPRAZOLE 20 MG CAPSULE PO PRN (19:15)
[2023-04-16] MEDS ORDERED: ALBUTEROL SULFATE HFA 90 MCG/PUFF 8 GM INHALER IH PRN (19:15)
[2023-04-16] MEDS ORDERED: LOPERAMIDE HCL 2 MG CAPSULE PO PRN (19:15)
[2023-04-16] MEDS ORDERED: MAGNESIUM HYDROXIDE SUSPENSION 30 ML UDCUP PO PRN (19:15)
[2023-04-16] MEDS ORDERED: PETROLATUM,WHITE 28 GM JELLY TP PRN (19:15)
[2023-04-16] MEDS ORDERED: DOCUSATE SODIUM 100 MG CAPSULE PO PRN (19:15)
[2023-04-16] MEDS: OLANZapine 5 MG TABLET PO SCH (20:33)
[2023-04-16] MEDS: DIVALPROEX SODIUM 500 MG DR TABLET PO SCH (20:33)
[2023-04-16 20:46] VITALS: BP 108/73; PULSE 89; RESP 18; TEMP 97.6; O2SAT 95
[2023-04-17] MEDS: MetFORMIN HCL 500 MG TABLET PO SCH (06:46)
[2023-04-17] MEDS: DIVALPROEX SODIUM 500 MG DR TABLET PO SCH ×2 (08:18→20:32)
[2023-04-17 08:30] VITALS: PULSE 100; TEMP 97.8
[2023-04-17 08:33] VITALS: BP 111/75; PULSE 100; RESP 18; TEMP 97.7; O2SAT 96
[2023-04-17 20:17] VITALS: BP 108/69; PULSE 80; RESP 18; TEMP 97.8; O2SAT 97
[2023-04-17] MEDS: OLANZapine 5 MG TABLET PO SCH (20:32)
[2023-04-18] MEDS: ZOLPIDEM TARTRATE 10 MG TABLET PO PRN ×2 (01:52→20:06)
[2023-04-18] MEDS: MetFORMIN HCL 500 MG TABLET PO SCH (06:39)
[2023-04-18] MEDS: DIVALPROEX SODIUM 500 MG DR TABLET PO SCH ×2 (08:17→20:06)
[2023-04-18 08:28] VITALS: BP 104/67; PULSE 84; RESP 18; TEMP 96.8; O2SAT 97
[2023-04-18] MEDS: LORazepam 2 MG TABLET PO PRN (13:33)
[2023-04-18] MEDS: OLANZapine 5 MG TABLET PO SCH (20:06)
[2023-04-18 20:23] VITALS: BP 104/72; PULSE 78; RESP 16; TEMP 97.4; O2SAT 99
[2023-04-19] MEDS: MetFORMIN HCL 500 MG TABLET PO SCH (06:42)
[2023-04-19] MEDS: DIVALPROEX SODIUM 500 MG DR TABLET PO SCH ×2 (08:10→20:27)
[2023-04-19 08:45] VITALS: BP 105/67; PULSE 96; RESP 18; TEMP 98; O2SAT 97
[2023-04-19 20:05] VITALS: BP 108/72; PULSE 89; RESP 18; TEMP 97.8; O2SAT 98
[2023-04-19] MEDS: OLANZapine 5 MG TABLET PO SCH (20:27)
[2023-04-20] MEDS: MetFORMIN HCL 500 MG TABLET PO SCH (06:41)
[2023-04-20 08:01] VITALS: BP 124/75; PULSE 97; RESP 18; TEMP 98.1; O2SAT 98
[2023-04-20] MEDS: DIVALPROEX SODIUM 500 MG DR TABLET PO SCH ×2 (08:14→20:11)
[2023-04-20] MEDS: OLANZapine 5 MG TABLET PO SCH (20:11)
[2023-04-20 22:56] VITALS: BP 118/78; PULSE 99; RESP 18; TEMP 98.6; O2SAT 99
[2023-04-21] MEDS: MetFORMIN HCL 500 MG TABLET PO SCH (07:07)
[2023-04-21] MEDS: DIVALPROEX SODIUM 500 MG DR TABLET PO SCH ×2 (08:21→20:17)
[2023-04-21 08:22] VITALS: BP 118/81; PULSE 100; RESP 18; TEMP 97.9; O2SAT 98
[2023-04-21] MEDS: ZOLPIDEM TARTRATE 10 MG TABLET PO PRN (20:17)
[2023-04-21] MEDS: OLANZapine 5 MG TABLET PO SCH (20:17)
[2023-04-21 21:45] VITALS: RESP 18
[2023-04-21 22:40] VITALS: BP 121/80; PULSE 104; RESP 18
[2023-04-22] MEDS: LORazepam 2 MG TABLET PO PRN (02:08)
[2023-04-22] MEDS: MetFORMIN HCL 500 MG TABLET PO SCH (06:12)
[2023-04-22] MEDS: DIVALPROEX SODIUM 500 MG DR TABLET PO SCH ×2 (08:21→20:09)
[2023-04-22 08:37] VITALS: BP 100/65; PULSE 66; RESP 16; TEMP 97.3; O2SAT 97
[2023-04-22] MEDS: OLANZapine 5 MG TABLET PO SCH (20:09)
[2023-04-23] VITALS: BP 114/81; PULSE 77; RESP 18; TEMP 97.5; O2SAT 98
[2023-04-23] MEDS: MetFORMIN HCL 500 MG TABLET PO SCH (06:11)
[2023-04-23 08:09] VITALS: BP 104/67; PULSE 98; RESP 18; TEMP 98.2; O2SAT 96
[2023-04-23] MEDS: DIVALPROEX SODIUM 500 MG DR TABLET PO SCH ×2 (08:18→20:24)
[2023-04-23] MEDS: LORazepam 2 MG TABLET PO PRN (09:13)
[2023-04-23] MEDS: OLANZapine 5 MG TABLET PO SCH (20:28)
[2023-04-23 21:15] VITALS: BP 122/69; PULSE 77; RESP 18; TEMP 98; O2SAT 96
[2023-04-24] MEDS: MetFORMIN HCL 500 MG TABLET PO SCH (06:14)
[2023-04-24] MEDS: DIVALPROEX SODIUM 500 MG DR TABLET PO SCH ×2 (08:30→20:16)
[2023-04-24 08:31] VITALS: BP 108/66; PULSE 100; RESP 18; TEMP 98; O2SAT 96
[2023-04-24] MEDS: OLANZapine 5 MG TABLET PO SCH (20:20)
[2023-04-24] MEDS: ZOLPIDEM TARTRATE 10 MG TABLET PO PRN (20:21)
[2023-04-24 20:38] VITALS: BP 115/71; PULSE 88; RESP 18; TEMP 97.5; O2SAT 97
[2023-04-25] MEDS: MetFORMIN HCL 500 MG TABLET PO SCH (06:37)
[2023-04-25] MEDS: DIVALPROEX SODIUM 500 MG DR TABLET PO SCH ×2 (08:15→21:05)
[2023-04-25 08:20] VITALS: BP 115/70; PULSE 100; RESP 18; TEMP 98; O2SAT 97
[2023-04-25 20:01] VITALS: BP 131/89; PULSE 101; RESP 18; TEMP 97.8; O2SAT 98
[2023-04-25] MEDS: ZOLPIDEM TARTRATE 10 MG TABLET PO PRN (21:05)
[2023-04-25] MEDS: OLANZapine 5 MG TABLET PO SCH (21:05)
[2023-04-26] MEDS: MetFORMIN HCL 500 MG TABLET PO SCH (06:26)
[2023-04-26 08:23] VITALS: BP 119/81; PULSE 82; RESP 18; TEMP 98; O2SAT 99
[2023-04-26] MEDS: LORazepam 2 MG TABLET PO PRN (08:29)
[2023-04-26] MEDS: DIVALPROEX SODIUM 500 MG DR TABLET PO SCH (08:29)
[2023-04-26] MEDS ORDERED: OLAN7.5T22 PO (13:57)
== END 2023-04-26 17:15 | disposition home or self-care (01) | DRG 750 ==
LOC: B3A 00:51
PROVIDERS: ADMIT Psychiatry & Neurology Psychiatry; ATTEND Psychiatry & Neurology Psychiatry
DX: F25.9 Schizoaffective disorder, unspecified (principal); E88.810 Metabolic syndrome; E66.9 Obesity, unspecified; F41.9 Anxiety disorder, unspecified; Z20.822 Contact with and (suspected) exposure to COVID-19; K59.00 Constipation, unspecified; I10 Essential (primary) hypertension; G47.00 Insomnia, unspecified; Z72.0 Tobacco use; Z68.36 Body mass index [BMI] 36.0-36.9, adult
CPT/HCPCS: 80053; 80061; 80164; 80307; 81003; 83036; 84439; 84443; 84703; 85025